=== PATIENT | male | born 1960 | race Caucasian/White ===

== ENCOUNTER 2018-09-01 06:39 | Day surgery (SDC) | payer OTHER ==
[2018-09-01] MEDS ORDERED: Ringers Lactate 1,000 ML IV ONE (07:14)
[2018-09-01] MEDS ORDERED: PROPOFOL 200 MG/20 ML VIAL IV ONE ×2 (08:52)
[2018-09-01] MEDS ORDERED: LIDOCAINE 1% MPF 5 ML VIAL ONE (08:53)
--- NOTE | 2018-09-01 19:24 | OP ---
Surgeon: Som Archer MD Procedure To Be Performed: Colonoscopy. Indication For Procedure: Screening. Complexity: Average. Plan For Anesthesia: Monitored anesthesia care. Technique: After obtaining informed consent from the patient and explaining risks and complications, the patient was placed in a left lateral position and sedation was given. From then on, a digital r ectal exam was performed and then scope advanced into the rectum and carefully guided up till the cec um. The cecum was identified by ileocecal valve and appendiceal region. After completion of examina tion, the scope and equipment were withdrawn and procedure terminated in a safe manner. Findings: On digital rectal exam, the prostate appeared to be smooth, but slightly enlarged. Peri us polyps were seen throughout the length of the colon. In the cecum, a sessile polyp around 4 mm in size was seen. This was removed with hot biopsy. In the ascending colon, a 4-mm flat polyp was see n, removed by hot biopsy. Also in the ascending colon, a 1.1 cm sessile polyp was seen. This was re moved by snare polypectomy. In the transverse colon, 2 polyps were seen around 3-4 mm in size. Thes e were removed by hot biopsy. In the splenic flexure, 2 polyps around 5-6 mm was seen. These were r emoved by hot biopsies. In the descending colon, a very flat, but large polyp which was around 1.5 x 1.5 cm was seen. This was first injected with tattoo for lift and complete snare polypectomy done. All polyp appeared to be resected and retrieved. In the sigmoid colon, few diverticula seen as well as 4 sessile polyps from 5-6 mm in size. These were removed by hot biopsy. In the rectum, 2 polyps around 8 mm in size were seen. These was resected by snare polypectomy. Retroflexion revealed grad e 1 internal hemorrhoids. Complications: None. Tolerance To Anesthesia: Excellent. Postoperative Diagnoses: Mild diverticulosis. Multiple polyps. Plan: 1.Await pathology results. 2.Follow up in the GI clinic in 2 weeks. 3.Due to significant number of polyps, would recommend staged colonoscopy in 1 year. US/MODL Voice ID: [id number] Report ID: [id number]
== END 2018-09-01 10:09 | disposition home or self-care (01) ==
LOC: ENDO 06:39
PROVIDERS: ATTEND Internal Medicine Gastroenterology
PROC: 0DBL8ZX Excision of Transverse Colon, Via Natural or Artificial Opening Endoscopic, Diagnostic (ICD-10-PCS; 2018-09-01)
PROC: 0DBN8ZX Excision of Sigmoid Colon, Via Natural or Artificial Opening Endoscopic, Diagnostic (ICD-10-PCS; 2018-09-01)
PROC: 0DBH8ZX Excision of Cecum, Via Natural or Artificial Opening Endoscopic, Diagnostic (ICD-10-PCS; 2018-09-01)
PROC: 0DBK8ZX Excision of Ascending Colon, Via Natural or Artificial Opening Endoscopic, Diagnostic (ICD-10-PCS; 2018-09-01)
PROC: 0DBP8ZX Excision of Rectum, Via Natural or Artificial Opening Endoscopic, Diagnostic (ICD-10-PCS; 2018-09-01)
PROC: 0DBM8ZX Excision of Descending Colon, Via Natural or Artificial Opening Endoscopic, Diagnostic (ICD-10-PCS; 2018-09-01)
PROC: 3E0H8GC Introduction of Other Therapeutic Substance into Lower GI, Via Natural or Artificial Opening Endoscopic (ICD-10-PCS; 2018-09-01)
PROC: 0DBK8ZX Excision of Ascending Colon, Via Natural or Artificial Opening Endoscopic, Diagnostic (ICD-10-PCS; principal; 2018-09-01 07:30)
DX: Z12.11 Encounter for screening for malignant neoplasm of colon (principal); D12.0 Benign neoplasm of cecum; D12.2 Benign neoplasm of ascending colon; D12.3 Benign neoplasm of transverse colon; D12.8 Benign neoplasm of rectum; K63.5 Polyp of colon; K62.1 Rectal polyp; K57.30 Diverticulosis of large intestine without perforation or abscess without bleeding; K64.0 First degree hemorrhoids; Z87.891 Personal history of nicotine dependence
CPT/HCPCS: 88305; J2704

== ENCOUNTER 2018-09-16 09:26 | Emergency (ER) | payer OTHER ==
[2018-09-16 10:26] LABS: Absolute Lymphocytes (CBC) 2.5 K/uL (0.7-4.9); Absolute Monocytes 0.7 K/uL (0.1-1.3); Basophils % 0.2 % (0-1.3); Eosinophils % 2.3 % (0-4.4); Hematocrit 41.6 % (39.6-49.0); Lymphocytes % 33.7 % (15.3-44.8); MCH 32.8 pg (27.0-35.0); MCV 94.5 fL (80-100); MPV 7.9 fL (7.6-11.3); Monocytes % 9.7 % (3.3-12.3)
[2018-09-16 10:49] LABS: ALT/SGPT 148 U/L (12-78); AST/SGOT 58 U/L (15-37); Albumin 4.1 g/dL (3.4-5.0); Alkaline Phosphatase 50 U/L (45-117); BUN Blood Urea Nitrogen 18 mg/dL (7-18); Bicarbonate 26 mmol/L (21-32); Bilirubin Direct 0.1 mg/dL (0-0.2); Bilirubin Total 0.5 mg/dL (0.2-1.0); Glucose Level 105 mg/dL (74-106); Lipase 199 U/L (73-393); Magnesium 2.3 mg/dL (1.8-2.4); NT PRO-BNP 7 pg/mL (<125); Potassium 4.4 mmol/L (3.5-5.1); Protein, Total 8.1 g/dL (6.4-8.2); Sodium Level 141 mmol/L (136-145); Troponin (Emerg Dept Use Only) < 0.02 ng/mL (0.0-0.045)
[2018-09-16] MEDS ORDERED: PANTOPRAZOLE 40 MG INJ ONE (11:12)
[2018-09-16] MEDS ORDERED: NA CHLORIDE 0.9% 1,000 ML ONE (11:12)
--- NOTE | 2018-09-16 11:24 | RAD REPORT ---
EXAM DESCRIPTION: RAD - Chest Single View - 09/16/2018 10:52 am CLINICAL HISTORY: ABDOMINAL DISTENTION Chest pain. COMPARISON: Abdomen 1 View (KUB) dated 11/24/2017; Abdomen 1 View (KUB) dated 11/15/2017; Abdomen 1 Vi ew (KUB) dated 11/08/2017; Abdomen 1 View (KUB) dated 11/03/2017 FINDINGS: Portable technique limits examination quality. The lungs are grossly clear. The heart is normal in size. No displaced fractures. IMPRESSION: No acute intrathoracic process suspected.
[2018-09-16 12:26] LABS: Urine Blood NEGATIVE (NEG); Urine Glucose NEGATIVE (NEG); Urine Protein NEGATIVE (NEG); Urine pH 6.5 (5.0-7.0)
--- NOTE | 2018-09-16 12:51 | RAD REPORT ---
EXAM DESCRIPTION: CT - Abdomen Pelvis W Contrast - 09/16/2018 12:30 pm CLINICAL HISTORY: Abdominal pain, predominantly right-sided. Lower back pain, dark bowel movements, history of colonoscopy 2 weeks earlier COMPARISON: None. TECHNIQUE: Biphasic, helical CT imaging of the abdomen and pelvis was performed following 100 ml non -ionic IV contrast. Oral contrast was given. All CT scans are performed using dose optimization technique as appropriate and may include automated exposure control or mA/KV adjustment according to patient size. FINDINGS: No suspicious findings in the lung bases. The liver, spleen, and pancreas show no focal findings. Liver shows a mild diffuse fatty infiltration . No gallbladder or biliary tree abnormality. There are few nonspecific peripancreatic and periportal lymph nodes. No edematous or inflammatory stranding of the upper abdomen. Symmetric renal function is seen with no hydronephrosis or suspicious renal mass. No pyelonephritis o r acute renal parenchymal process. Prostate gland, seminal vesicles and urinary bladder show no suspi cious finding. No gastric dilatation or wall thickening. No acute small bowel finding. The appendix is not well visu alized. No appendicitis findings. Terminal ileum and right side colon show no suspicious findings. Th ere a mild circumferential wall thickening mid sigmoid colon. This is favored to be a peristalsis art ifact. There is no inflammatory stranding or edema in this region and the patient had a colonoscopy 2 weeks earlier. Patient is apparently asymptomatic on the left side. No free air, free fluid or inflammatory stranding. No mass or bulky lymphadenopathy. Bilateral fat filled inguinal hernia is present. No adrenal abnormality. Disc and bone degenerative changes are present. Lucent area in the right ilium has a sclerotic rim an d is not suspected to be aggressive. IMPRESSION: No free air, obstruction or other surgically emergent finding. No abnormality to explain the patient detailed a right-sided abdominal pain. Mid sigmoid colon wall thickening favored to be peristalsis artifact. There is no inflammatory strand ing and recent colonoscopy should have excluded possibility of a mass. Mild diffuse fatty infiltration of the liver.
--- NOTE | 2018-09-16 13:19 | EDPHYS ---
Physician Documentation [facility] Name: Isaías Summers Age: 58 yrs Sex: Male : 1960 Arrival Date: 09/16/2018 Time: 09:30 Bed 8 Private MD: Xochilt Contreras F ED Physician Shawn Lake HPI: 09/16 10:10 This 58 yrs old Male presents to ER via Ambulatory with complaints of hans Abdominal Pain, Black/Tarry Stools. 10:10 The patient presents with abdominal pain in the right upper quadrant, right lower hans quadrant. Onset: The symptoms/episode began/occurred 2 day(s) ago. The patient presents to the emergency department with rectal bleeding, a small amount, melena, with multiple such episodes. Onset: The symptoms/episode began/occurred 1 day(s) ago. Abdominal pain: none is appreciated. Modifying factors: The symptoms are alleviated by nothing, the symptoms are aggravated by nothing. Associated signs and symptoms: The patient has no apparent associated signs or symptoms. The symptoms do not radiate. Historical: - Allergies: 09:48 No Known Allergies; aa5 - PMHx: 09:48 Kidney stones; sleep apnea-c pap machine; aa5 - PSHx: 09:48 TURP; Knee surgery; aa5 - Immunization history:: Flu vaccine is not up to date. - Social history:: Smoking status: Patient/guardian denies using tobacco. - Ebola Screening: : No symptoms or risks identified at this time. - Family history:: not pertinent. ROS: 10:10 Constitutional: Negative for fever, chills, and weight loss, Eyes: Negative for injury, hans pain, redness, and discharge, ENT: Negative for injury, pain, and discharge, Neck: Negative for injury, pain, and swelling, Cardiovascular: Negative for chest pain, palpitations, and edema, Respiratory: Negative for shortness of breath, cough, wheezing, and pleuritic chest pain, Back: Negative for injury and pain, : Negative for injury, bleeding, discharge, and swelling, MS/Extremity: Negative for injury and deformity, Skin: Negative for injury, rash, and discoloration, Neuro: Negative for headache, weakness, numbness, tingling, and seizure, Psych: Negative for depression, anxiety, suicide ideation, homicidal ideation, and hallucinations, Allergy/Immunology: Negative for hives, rash, and allergies, Endocrine: Negative for neck swelling, polydipsia, polyuria, polyphagia, and marked weight changes, Hematologic/Lymphatic: Negative for swollen nodes, abnormal bleeding, and unusual bruising. 10:10 Abdomen/GI: Positive for abdominal pain, of the right upper quadrant and right lower quadrant. Exam: 10:10 Constitutional: This is a well developed, well nourished patient who is awake, alert, hans and in no acute distress. Head/Face: Normocephalic, atraumatic. Eyes: Pupils equal round and reactive to light, extra-ocular motions intact. Lids and lashes normal. Conjunctiva and sclera are non-icteric and not injected. Cornea within normal limits. Periorbital areas with no swelling, redness, or edema. ENT: Nares patent. No nasal discharge, no septal abnormalities noted. Tympanic membranes are normal and external auditory canals are clear. Oropharynx with no redness, swelling, or masses, exudates, or evidence of obstruction, uvula midline. Mucous membranes moist. Neck: Trachea midline, no thyromegaly or masses palpated, and no cervical lymphadenopathy. Supple, full range of motion without nuchal rigidity, or vertebral point tenderness. No Meningismus. Chest/axilla: Normal chest wall appearance and motion. Nontender with no deformity. No lesions are appreciated. Cardiovascular: Regular rate and rhythm with a normal S1 and S2. No gallops, murmurs, or rubs. Normal PMI, no JVD. No pulse deficits. Respiratory: Lungs have equal breath sounds bilaterally, clear to auscultation and percussion. No rales, rhonchi or wheezes noted. No increased work of breathing, no retractions or nasal flaring. Abdomen/GI: Soft, non-tender, with normal bowel sounds. No distension or tympany. No guarding or rebound. No evidence of tenderness throughout. Back: No spinal tenderness. No costovertebral tenderness. Full range of motion. Male : Normal genitalia with no discharge or lesions. Skin: Warm, dry with normal turgor. Normal color with no rashes, no lesions, and no evidence of cellulitis. MS/ Extremity: Pulses equal, no cyanosis. Neurovascular intact. Full, normal range of motion. Neuro: Awake and alert, GCS 15, oriented to person, place, time, and situation. Cranial nerves II-XII grossly intact. Motor strength 5/5 in all extremities. Sensory grossly intact. Cerebellar exam normal. Normal gait. Psych: Awake, alert, with orientation to person, place and time. Behavior, mood, and affect are within normal limits. 10:10 Abdomen/GI: Inspection: distension, Bowel sounds: normal, Palpation: abdomen is soft and non-tender, Rectal exam: is unremarkable, Prostate: normal, rectal tone normal, Stool: normal, guaiac negative, mass, is not appreciated, swelling, is not appreciated, tenderness, is not appreciated, fecal impaction, is not appreciated. Vital Signs: 09:48 BP 127 / 85; Pulse 68; Resp 18 S; Temp 98.0(TE); Pulse Ox 98% on R/A; Weight 107.95 kg aa5 (R); Height 6 ft. 2 in. (187.96 cm) (R); Pain /; 11:35 BP 120 / 94; Pulse 52; Resp 18; Pulse Ox 98% on R/A; aj 13:07 BP 136 / 92; Pulse 53; Resp 20; Pulse Ox 98% on R/A; aj 13:51 BP 134 / 97; Pulse 58; Resp 19; Pulse Ox 99% on R/A; aj 09:48 Body Mass Index 30.56 (107.95 kg, 187.96 cm) aa5 MDM: 09:56 Patient medically screened. [facility] 10:12 Data reviewed: vital signs, nurses notes, lab test result(s), EKG, radiologic studies, [facility] CT scan, plain films. 09/16 10:10 Order name: Basic Metabolic Panel; Complete Time: 12:13 [facility] 09/16 10:10 Order name: CBC with Diff; Complete Time: 12:13 [facility] 09/16 10:10 Order name: LFT's; Complete Time: 12:13 [facility] 09/16 10:10 Order name: Magnesium; Complete Time: 12:13 [facility] 09/16 10:10 Order name: NT PRO-BNP; Complete Time: 12:13 [facility] 09/16 10:10 Order name: PT-INR; Complete Time: 12:13 [facility] 09/16 10:10 Order name: Troponin (emerg Dept Use Only); Complete Time: 12: [facility] 09/16 10:10 Order name: XRAY Chest (1 view); Complete Time: 12:13 [facility] 09/16 10:10 Order name: EKG; Complete Time: 10:11 [facility] 09/16 10:10 Order name: Lipase; Complete Time: 12:13 [facility] 09/16 10:10 Order name: CT Abd/Pelvis - W/Contrast; Complete Time: 13:12 [facility] 09/16 11:24 Order name: Urine Dipstick--Ancillary (enter results); Complete Time: 12:31 09/16 10:10 Order name: Cardiac monitoring; Complete Time: 10:47 [facility] 09/16 10:10 Order name: EKG - Nurse/Tech; Complete Time: 10:47 [facility] 09/16 10:10 Order name: IV Saline Lock; Complete Time: :47 [facility] 09/16 10:10 Order name: Labs collected and sent; Complete Time: :47 [facility] 09/16 10:10 Order name: O2 Per Protocol; Complete Time: 10:47 [facility] 09/16 10:10 Order name: O2 Sat Monitoring; Complete Time: :47 [facility] 09/16 10:10 Order name: Urine Dipstick-Ancillary (obtain specimen); Complete Time: 11:20 [facility] Administered Medications: 11:19 Drug: NS 0.9% 1000 ml Route: IV; Rate: 1 bolus; Site: right forearm; 13:52 Follow up: Response: No adverse reaction; IV Status: Completed infusion; IV Intake: aj 1000ml 11:19 Drug: ProTONIX 40 mg Route: IVP; Site: right forearm; aj 13:52 Follow up: Response: No adverse reaction Disposition: 09/16/18 13:18 Discharged to Home. Impression: Abdominal tenderness. - Condition is Stable. - Discharge Instructions: Abdominal Pain, Adult, Abdominal Pain, Adult, [id number]. - Prescriptions for Bentyl 20 mg Oral Tablet - take 1 tablet by ORAL route every 6 hours As needed; 20 tablet. Pepcid 20 mg Oral Tablet - take 1 tablet by ORAL route every 12 hours for 10 days; 20 tablet. Zofran 4 mg Oral Tablet - take 1 tablet by ORAL route every 12 hours As needed; 20 tablet. - Medication Reconciliation Form, Thank You Letter, Antibiotic Education, Prescription Opioid Use form. - Follow up: Xochilt Contreras MD; When: 2 - 3 days; Reason: Recheck today's complaints, Continuance of care, Re-evaluation by your physician. Follow up: Som Archer MD; When: 2 - 3 days; Reason: Recheck today's complaints, Continuance of care, Re-evaluation by your physician. Follow up: Alex Razo MD; When: 2 - 3 days; Reason: Recheck today's complaints, Re-evaluation by your physician. - Problem is new. - Symptoms have improved. Signatures: Dispatcher [employer] EDAnna Aguiar RN RN aj Anderson, Corey, MD MD cha Calderon, Audri RN RN aa5 Corrections: (The following items were deleted from the chart) 13:53 13:18 09/16/2018 13:18 Discharged to Home. Impression: Abdominal tenderness. Condition aj is Stable. Forms are Medication Reconciliation Form, Thank You Letter, Antibiotic Education, Prescription Opioid Use. Follow up: Xochilt Contreras; When: 2 - 3 days; Reason: Recheck today's complaints, Continuance of care, Re-evaluation by your physician. Follow up: Som Archer; When: 2 - 3 days; Reason: Recheck today's complaints, Continuance of care, Re-evaluation by your physician. Follow up: Alex Razo; When: 2 - 3 days; Reason: Recheck today's complaints, Re-evaluation by your physician. Problem is new. Symptoms have improved. hans
--- NOTE | 2018-09-16 13:19 | ER ---
Nurse's Notes [facility] Name: Isaías Summers Age: 58 yrs Sex: Male : 1960 Arrival Date: 09/16/2018 Time: 09:30 Bed 8 Private MD: Xochilt Contreras F Diagnosis: Abdominal tenderness Presentation: 09/16 09:46 Presenting complaint: Patient states: "I had my first colonoscopy about 2 weeks ago and aa5 now I am having all this problems". Pt c/o right-sided abd pain and lower back. Pt states "My bowel movement are pretty dark as well". Pt denies nausea or vomiting. Pt states "I get the pains after eating". Transition of care: patient was not received from another setting of care. Onset of symptoms was August 2018. Risk Assessment: Do you want to hurt yourself or someone else? Patient reports no desire to harm self or others. Initial Sepsis Screen: Does the patient meet any 2 criteria? No. Patient's initial sepsis screen is negative. Does the patient have a suspected source of infection? No. Patient's initial sepsis screen is negative. Care prior to arrival: None. 09:46 Method Of Arrival: Ambulatory aa5 09:46 Acuity: BYRON 3 aa5 Historical: - Allergies: 09:48 No Known Allergies; aa5 - PMHx: 09:48 Kidney stones; sleep apnea-c pap machine; aa5 - PSHx: 09:48 TURP; Knee surgery; aa5 - Immunization history:: Flu vaccine is not up to date. - Social history:: Smoking status: Patient/guardian denies using tobacco. - Ebola Screening: : No symptoms or risks identified at this time. - Family history:: not pertinent. Screenin:18 Abuse screen: Denies threats or abuse. Denies injuries from another. Nutritional aj screening: No deficits noted. Tuberculosis screening: No symptoms or risk factors identified. Fall Risk None identified. Assessment: 10:18 General: Appears in no apparent distress. comfortable, Behavior is calm, cooperative, aj appropriate for age. Pain: Denies pain. Neuro: Level of Consciousness is awake, alert, obeys commands, Oriented to person, place, time, situation, Appropriate for age. Respiratory: Airway is patent Respiratory effort is even, unlabored, Respiratory pattern is regular, symmetrical. GI: Abdomen is flat, Bowel sounds present X 4 quads. Abd is soft and non tender X 4 quads. GI: Reports black tarry stool. Derm: Skin is intact, is healthy with good turgor, Skin is pink, warm \\T\\ dry. normal. Vital Signs: 09:48 BP 127 / 85; Pulse 68; Resp 18 S; Temp 98.0(TE); Pulse Ox 98% on R/A; Weight 107.95 kg aa5 (R); Height 6 ft. 2 in. (187.96 cm) (R); Pain 1/10; 11:35 BP 120 / 94; Pulse 52; Resp 18; Pulse Ox 98% on R/A; aj 13:07 BP 136 / 92; Pulse 53; Resp 20; Pulse Ox 98% on R/A; aj 13:51 BP 134 / 97; Pulse 58; Resp 19; Pulse Ox 99% on R/A; aj 09:48 Body Mass Index 30.56 (107.95 kg, 187.96 cm) aa5 ED Course: 09:30 Patient arrived in ED. mr 09:30 Xochilt Contreras MD is Private Physician. mr 09:46 Arm band placed on. aa5 09:48 Triage completed. aa5 09:56 Shawn Lake MD is Attending Physician. hans 10:18 Anna Spears, HUMPHREY is Primary Nurse. aj 10:18 Patient has correct armband on for positive identification. aj 10:18 Inserted saline lock: 20 gauge in right forearm, using aseptic technique. Blood aj collected. 10:47 EKG done, by ED staff, reviewed by Shawn Lake MD. jb1 10:48 X-ray completed. Portable x-ray completed in exam room. Patient tolerated procedure ls3 well. 10:53 XRAY Chest (1 view) In Process Unspecified. EDMS 12:30 CT Abd/Pelvis - W/Contrast In Process Unspecified. EDMS 13:17 Xochilt Contreras MD is Referral Physician. hans 13:17 Som Archer MD is Referral Physician. hans 13:17 Alex Razo MD is Referral Physician. hans 13:51 No provider procedures requiring assistance completed. IV discontinued, intact, aj bleeding controlled, No redness/swelling at site. Pressure dressing applied. Administered Medications: 11:19 Drug: NS 0.9% 1000 ml Route: IV; Rate: 1 bolus; Site: right forearm; shawn 13:52 Follow up: Response: No adverse reaction; IV Status: Completed infusion; IV Intake: aj 1000ml 11:19 Drug: ProTONIX 40 mg Route: IVP; Site: right forearm; aj 13:52 Follow up: Response: No adverse reaction aj Intake: 13:52 IV: 1000ml; Total: 1000ml. shawn Outcome: 13:18 Discharge ordered by . hans 13:51 Discharged to home ambulatory. shawn 13:51 Condition: good 13:51 Discharge instructions given to patient, Instructed on discharge instructions, follow up and referral plans. medication usage, Demonstrated understanding of instructions, follow-up care, medications, Prescriptions given X 3. 13:53 Patient left the ED. aj Signatures: Dispatcher [employer] EDScott Billy jb1 Anna Spears, RN Shawn Dixon MD MD cha Rivera, Mary mr Calderon, Audri, RN RN Steffanie Akbar ls3
--- NOTE | 2018-09-17 07:04 | EKG ---
Test Date: 2018-09-16 Test Time: 10:09:41 Strategic Planning Analyst: KULWINDER MEASUREMENT RESULTS: Intervals: Rate: 54 GA: 150 QRSD: 136 QT: 452 QTc: 428 [place]: P: 45 GA: 150 QRS: -17 T: 14 INTERPRETIVE STATEMENTS: Sinus bradycardia Right bundle branch block Abnormal ECG Compared to ECG 11/12/2017 09:08:20 Right bundle-branch block now present Sinus rhythm no longer present Electronically Signed On 09-17-18 07:03:33 ROTOR BALANCER by Emory Joseph
== END 2018-09-16 13:53 | disposition home or self-care (01) ==
LOC: ER 09:26
DX: R10.819 Abdominal tenderness, unspecified site (principal)
CPT/HCPCS: 36415; 71045; 74177; 80048; 80076; 81003; 83690; 83735; 83880; 84484; 85025; 85610; 93005; 96361; 96374; 99284; C9113; J7030; Q9967

== ENCOUNTER 2018-11-24 06:25 | Day surgery (SDC) | payer OTHER ==
--- NOTE | 2018-11-23 02:29 | HP ---
Date of Admission: 11/24/2018 Chief Complaint: "I have a spot on my upper jaw." History Of Present Illness: The patient is a 58-year-old male, who has been having drainage of fluid from the right posterior maxillary vestibule over the past 3 months. He had a routine examination in January of 2018 by his general dentist. The dentist found an impacted third molar on plain radiographs that showed a large cyst in the right maxillary quadrant. His general dentist referred the patient for further evaluation and treatment. Past Medical History: Was reviewed, is significant for nephrolithiasis and colon polyps. Past Surgical History: Colonoscopy, removal of kidney stones. Social History: The patient drinks 4 beers daily. The patient reports that he stopped smoking cigarettes about 2-1/2 months ago. Medications: None. Allergies: NO KNOWN DRUG ALLERGIES. Physical Examination: Preoperative vital signs: Pulse 71, blood pressure 136/80, height 74 inches, weight 240 pounds, BMI 30.81. Body surface area 2.38. Imaging: Cone beam CT scans dated 02/17/2018 and 11/10/2018, both show unilocular expansile masses in the left and right posterior maxilla and maxillary sinuses. Both lesions were associated with impacted third molars. The third molars have been displaced into the medial and posterior valdes of the maxillary sinuses. There is radiopaque fluid within the right maxillary sinus. The right lesion measures about 2.5 x 3.6 cm and the left lesion measures 4.0 x 4.0 cm. There is a thin layer of bone surrounding most of the lesion on both sides with the exception of a large perforation of the lateral sinus wall into the buccal soft tissues on the right side. There is some expansion into the nasal passage on the left. The lesion is near the orbital floor and ethmoid sinuses on the left side. The roots of the molar teeth on the left side are almost completely resorbed. The roots of the molar teeth on the right side have significant resorption. The remainders of the jaw are without pathology. Teeth #5, #12, #17, #20, and #32 are missing. Oral Exam: An expansile mass can be palpated in the right posterior maxillary vestibule. It is firm and nontender. No exudate is expressed initially. The overlying mucosa appears to be normal. The teeth in the area are not mobile. There is no obvious expansion in the left maxillary vestibule. The overlying mucosa was normal in appearance. The posterior teeth are not mobile. Upon secondary palpation in the right posterior maxillary vestibule, some thick yellow exudate is expressed from a fistula just superior to the first molar. Diagnosis: Left and right maxillary cyst associated with impacted teeth #1 and #16. Differential Diagnoses: Includes: 1. Dentigerous cysts. 2. Odontogenic keratocyst or keratinizing odontogenic tumor. 3. Glandular odontogenic cyst. Plan: The patient will be admitted for outpatient hospital surgery. Operative plan is to extract impacted teeth #1 and #16, decompress the right and left maxillary cysts with enucleation and curettage of the right and left maxillary cysts. Specimens will be sent for histologic path diagnoses. MARYA/LISSETH Voice ID: [id number]
[~2018-11-24 06:25] MED LIST: CLINDAMYCIN INJ 900 MG in NA CHLORIDE 0.9% 50 ML IV SCH
[2018-11-24] MEDS ORDERED: CLINDAMYCIN 900MG/D5W 900 MG/50 ML IVPB IV ONE (07:00)
[2018-11-24] MEDS ORDERED: Ringers Lactate 1,000 ML IV ONE (07:00)
[2018-11-24] MEDS ORDERED: CHLORHEXIDINE 0.12% 473ML BOT MM ONE (07:25)
[2018-11-24] MEDS ORDERED: BUPIVACAINE 0.5% PF 10 ML VIAL ONE (07:25)
[2018-11-24] MEDS ORDERED: THROMBIN 5000 UNITS/VIAL TOP ONE (07:26)
[2018-11-24] MEDS ORDERED: PROPOFOL 200 MG/20 ML VIAL IV ONE (07:33)
[2018-11-24] MEDS ORDERED: MIDAZOLAM HCL 2 MG/2 ML INJ ONE (07:33)
[2018-11-24] MEDS ORDERED: LIDOCAINE 1% MPF 5 ML VIAL ONE (07:33)
[2018-11-24] MEDS ORDERED: ROCURONIUM 50 MG/5 ML VIAL IV ONE (07:33)
[2018-11-24] MEDS ORDERED: ONDANSETRON 4 MG/2 ML VIAL ONE ×2 (07:34→10:00)
[2018-11-24] MEDS ORDERED: DEXAMETHASONE 10 MG/ML VIAL ONE (07:34)
[2018-11-24] MEDS ORDERED: FENTANYL CITR 250 MCG/5 ML ONE ×2 (07:34→08:50)
[2018-11-24] MEDS ORDERED: OXYMETAZOLINE HCL 0.05% 15ML NAS ONE (07:37)
[2018-11-24] MEDS ORDERED: LIDOCAINE 1% W/EPI 1:100,000 MDV 50 ML VIAL ONE (07:38)
[2018-11-24] MEDS ORDERED: CEFAZOLIN 1GM (PREMIX IV) 1 GM/50 ML BAG ONE (08:40)
[2018-11-24] MEDS ORDERED: KETOROLAC 30 MG/ML INJ ONE (09:59)
[2018-11-24] MEDS ORDERED: GLYCOPYRROLATE 0.2 MG/ML SYR ONE ×2 (09:59→10:11)
[2018-11-24] MEDS ORDERED: NEOSTIGMINE 1 MG/ML -10 ML VIAL ONE (10:00)
[2018-11-24] MEDS ORDERED: SUCCINYLCHOLINE 20 MG/ML (10 ML) IV ONE (10:35)
--- NOTE | 2018-12-06 00:29 | OP ---
Date of Procedure: 11/24/2018 Surgeon: Jose L Mathew DDS, MD Tire Assembler: Staff. Preoperative Diagnosis: Right and left maxillary odontogenic cysts associated with impacted teeth #1 and #16. Postoperative Diagnosis: Right and left maxillary odontogenic cysts associated with impacted teeth # 1 and #16. Procedure: Enucleation and curettage of the right and left maxillary cysts and extraction of teeth # 1 and #16. Anesthesia: General endotracheal. Estimated Blood Loss: 75 cc. Fluids: 1.2 L of LR. Drains: 3/4-inch Fairbank drain on the right and left maxillary vestibules. Specimen: The left and right maxillary cysts were submitted for histopathology. Complications: None. Indications: The patient is a 58-year-old male, who initially presented about one year ago complaini ng of fluid and a foul taste and drainage from the right maxillary vestibule. He was examined by his general dentist and radiographs were taken. He was found to have large maxillary cysts and impacted wisdom tooth. He was referred for further evaluation and treatment. A cone beam CT scan of the fac ial skeleton was performed. The patient was found to have a displacement of impacted teeth #1 and #1 6 into the medial and posterior valdes of the maxillary sinus. He had large unilocular radiolucencies on the left and right side of the maxilla occupying most of the space in the maxillary antrum. Ther e was resorption of the roots of the molar teeth. Findings: The left maxillary cyst was thick walled and contained thick brown fluid that appeared to be keratin. The right maxillary cyst was also thick-walled and contained straw-colored fluid without much keratin. Procedure In Detail: The patient was taken to the operating room and placed on the table in the supi ne position. General anesthesia was begun and the patient was orotracheally intubated. The patient was then prepped and draped in the normal sterile fashion. A throat pack was placed. Local anesthes ia was given in the maxillary vestibules using 12 cc of 1% lidocaine with 1:100,000 epinephrine. The oral cavity was irrigated with chlorhexidine solution. A #15 blade was used to make an incision in the maxillary vestibule on the left side just above the molar teeth. The incision was carried from t he tuberosity forward to the premolar area. Full-thickness mucoperiosteal flaps were reflected super iorly and inferiorly to expose the area. The bone overlying the lateral wall of the maxillary antrum was very thin and in some areas there was no bone. A round bur and a Pennie drill were used to audrey e a window in the bone just above the first molar. A Levi-Srinivasan access was developed using the chaparro geurs. Curettes were used to begin to separate the cyst lining from the adjacent bone and soft tissu es. Sinus lift curettes were used to complete this process. The cyst was kept almost entirely intac t until the area around the impacted tooth #16 was reached. A small incision was made in the cyst li rod so that the tooth could be identified within the lumen of the cyst. Straight and curved elevato rs were used to luxate the tooth. It was then grasped with a rongeur and removed from the maxillary antrum. Curettes were used to then complete the enucleation of the cyst from the antral cavity. The cyst was removed in 1 large piece and submitted for histopathology. The curettes were used to remov e additional soft tissue from around the roots of the teeth and the superior part of the cyst cavity. There was no truly defined antrum and it was difficult to identify the sinus membrane. The defect was irrigated with sterile saline solution. A 3/4-inch Sally drain was then cut to fit into the sp ole. A 4-0 chromic gut suture was used in a running fashion to close the incision to the molar area. Fairbank drain was inserted in the cavity and secured with 1-0 silk sutures. The incision posterior to the drain was closed using 4-0 chromic gut sutures. Attention was then turned to the right side of the maxilla. A #15 blade was used to make an incision in the right maxillary vestibule from the t uberosity to the premolar area. Full-thickness mucoperiosteal flaps were reflected superiorly and in feriorly to expose the area. The bone overlying the cyst in the lateral wall of the maxillary sinus was very thin. It was removed using a small rongeur. Levi-Srinivasan access was created in [facility]. Sinus lift curettes were used to separate the cyst from the adjacent bone and soft tissues. Ther e were areas where the cyst lining was in direct contact with the musculature posterior to the maxill therese sinus and with the maxillary sinus membrane itself anteriorly and superiorly. Blunt dissection w as used to remove the cyst lining in this area. The cyst was enucleated in 1 piece. Once area where impacted teeth #1was reached, a small incision was made in the cyst so that the tooth could be acces sed through the lumen of the cyst. Upper universal dental forceps were used to grasp the tooth and r emove it. Curettes were then used to complete the enucleation of the cyst. There was very little re sidual cyst lining and curettes were used to remove a small amount more of soft tissue. Some sharp e dges of alveolar bone were removed with a rongeur and a 3/4-inch Sally drain was cut to fit into th e defect. The defect was irrigated with sterile saline solution. 4-0 chromic gut sutures were used to close the incision initially and then the Sally drain was inserted into the defect. The Fairbank drain was sutured with two 1-0 silk sutures. The remaining incision was closed using 4-0 chromic gu t sutures. The cyst was submitted for histopathologic diagnosis. The oral cavity was irrigated agai n with sterile saline solution, suctioned and found to be free of all blood and debris. The throat p ack was removed. The oropharynx was suctioned. 4 x 4 gauzes were placed bilaterally to aid with hem ostasis. The patient was awakened from general anesthesia and extubated in the operating room. The patient was transported to the recovery room in stable and satisfactory condition. MARYA/LISSETH Voice ID: [id number] Report ID: [id number]
== END 2018-11-24 12:50 | disposition home or self-care (01) ==
LOC: OR 06:25
PROVIDERS: ATTEND Oral & Maxillofacial Surgery
PROC: 0CBW0Z1 Excision of Upper Tooth, Open Approach, Multiple (ICD-10-PCS; 2018-11-24)
PROC: 0CDWXZ1 Extraction of Upper Tooth, Multiple, External Approach (ICD-10-PCS; principal; 2018-11-24 07:30)
DX: K09.0 Developmental odontogenic cysts (principal); K01.1 Impacted teeth; Z87.891 Personal history of nicotine dependence
CPT/HCPCS: J0330; J0690; J1100; J2250; J2405; J2704; J2710; J3010

== ENCOUNTER 2020-11-29 07:10 | Emergency (ER) | payer OTHER ==
--- OUTSIDE RECORDS SUMMARY | 2020-11-29 07:12 | XMS REPORT | Continuity of Care Document ---
:1960 Author Organization [facility] t Address [address] [place] [address] Care Team Providers Name Role Phone Pob1, Care Clinic Attending Clinician Unavailable Lab, Fam Pob I Attending Clinician Unavailable Doctor Unassigned, Name Attending Clinician Unavailable Problems This patient has no known problems. Allergies, Adverse Reactions, Alerts This patient has no known allergies or adverse reactions. Medications This patient has no known medications. Procedures This patient has no known procedures. Encounters Start End Encounter Admission Attending Care Care Encounter Source Date/Time Date/Time Type Type Clinicians Facility Department ID 2020-05-10 2020-05-10 Telephone Pob1, Acute [facility] [id number] 00:00:00 00:00:00 [facility] [id number] [place] [id number] Professio [phone] nal [address] 2020-05-09 2020-05-09 Laboratory Lab, Adc [facility] [id number] 09:38:46 09:58:46 Only Fam Pob I Health [id number] [place] [id number] Professio [phone] nal [address] 2020-05-09 2020-05-09 Letter Doctor VIGIL [id number] 00:00:00 00:00:00 (Out) Unassigned, [place] [id number] [facility] [id number] [phone] [id number] Results This patient has no known results.
[2020-11-29 08:13] LABS: Absolute Lymphocytes (CBC) 2.3 K/uL (0.7-4.9); Basophils % 1.3 % (0-1.3); Hematocrit 42.9 % (39.6-49.0); Lymphocytes % 39.6 % (15.3-44.8); MPV 7.7 fL (7.6-11.3); RBC Red Blood Cell Count 4.59 M/uL (4.33-5.43)
[2020-11-29 08:29] LABS: Albumin 4.3 g/dL (3.4-5.0); Bilirubin Direct 0.2 mg/dL (0-0.2); Bilirubin Total 0.8 mg/dL (0.2-1.0); Potassium 3.8 mmol/L (3.5-5.1)
[2020-11-29 08:43] LABS: Urine Blood NEGATIVE (NEG); Urine Glucose NEGATIVE (NEG); Urine Protein NEGATIVE (NEG); Urine pH 5.5 (5.0-7.0)
[2020-11-29 08:46] LABS: Urine Bacteria NONE SEEN /HPF (NONE SEEN); Urine Mucus HEAVY /HPF (NONE SEEN); Urine RBC <5 /HPF (NONE SEEN)
--- NOTE | 2020-11-29 09:52 | RAD REPORT ---
EXAM DESCRIPTION: CT - Abdomen Pelvis W Contrast - 11/29/2020 9:24 am CLINICAL HISTORY: left flank pain COMPARISON: <Comparisons> TECHNIQUE: Biphasic, helical CT imaging of the abdomen and pelvis was performed following 100 ml non -ionic IV contrast. No oral contrast administered. All CT scans are performed using dose optimization technique as appropriate and may include automated exposure control or mA/KV adjustment according to patient size. FINDINGS: No suspicious findings in the lung bases. The liver, spleen, and pancreas show no suspicious findings. Liver shows a mild diffuse fatty infiltr ation pattern. No focal liver lesion. No portal vein abnormality identified. Gallbladder and biliary tree without suspicious findings. Symmetric renal function is seen with no hydronephrosis or suspicious renal mass. No pyelonephritis o r acute parenchymal process. Nonobstructing 5 mm and 1 mm calcifications seen lower pole of the left kidney larger calcification has enlarged from 2018. The punctate 1 mm calcification is new from 2018. No adrenal abnormalities. No dilated bowel loops or bowel wall thickening. Mild left-sided sigmoid diverticulosis present witho ut diverticulitis. No free air, free fluid or inflammatory stranding. No mass or bulky lymphadenopat hy. Small bilateral fat filled inguinal hernias are present similar to 2018. No suspicious bony findings. Disc and bony degenerative changes are present. Prominent SI joint degen erative changes are present. These findings are similar to the comparison study. Vascular calcifications are present. No new aortic finding seen. IMPRESSION: Contrast enhanced CT abdomen and pelvis showing no acute or emergent finding. Patient has nonobstructing calculi in the lower pole of the left kidney. No acute finding is identifiable. Nonacute findings detailed in the body of the report. No worrisome change from 2018.
[2020-11-29] MEDS ORDERED: MEPERIDINE HCL 50 MG/ML ONE (10:01)
--- NOTE | 2020-11-29 10:13 | ER ---
Nurse's Notes [facility] Name: Isaías Summers Age: 60 yrs Sex: Male : 1960 Arrival Date: 11/29/2020 Time: 07:12 Bed 28 Private MD: Ramo Denis C Diagnosis: Low back pain Presentation: 11/29 07:32 Chief complaint: Patient states: Wednesday, left sided flank pain, had appt with urologist iw and was told he needed a CT scan but can;t have it done , having increasing pain. Coronavirus screen: At this time, the client does not indicate any symptoms associated with coronavirus-19. Ebola Screen: Patient negative for fever greater than or equal to 101.5 degrees Fahrenheit, and additional compatible Ebola Virus Disease symptoms Patient denies exposure to infectious person. Patient denies travel to an Ebola-affected area in the 21 days before illness onset. No symptoms or risks identified at this time. Initial Sepsis Screen: Does the patient meet any 2 criteria? No. Patient's initial sepsis screen is negative. Does the patient have a suspected source of infection? No. Patient's initial sepsis screen is negative. Risk Assessment: Do you want to hurt yourself or someone else? Patient reports no desire to harm self or others. Onset of symptoms was November 25, 2020. 07:32 Method Of Arrival: Ambulatory iw 07:32 Acuity: BYRON 3 iw Historical: - Allergies: 07:34 No Known Allergies; iw - Home Meds: 07:34 amlodipine oral [Active]; iw - PMHx: 07:34 Kidney stones; sleep apnea-c pap machine; Hypertension; iw - PSHx: 07:34 TURP; Knee surgery; iw - Immunization history:: Adult Immunizations not up to date. - Social history:: Smoking status: Patient reports the use of cigarette tobacco products, smokes one pack cigarettes per day. - Family history:: not pertinent. - Hospitalizations: : No recent hospitalization is reported. Screenin:00 Fall Risk None identified. iw 08:11 Abuse screen: Denies threats or abuse. Denies injuries from another. Nutritional iw screening: No deficits noted. Tuberculosis screening: No symptoms or risk factors identified. Assessment: 07:52 General: Appears in no apparent distress. Behavior is calm, cooperative. Pain: iw Complains of pain in left upper quadrant and left lower quadrant. 09:28 Reassessment: Patient appears in no apparent distress at this time. Patient and/or iw family updated on plan of care and expected duration. Pain level reassessed. Patient is alert, oriented x 3, equal unlabored respirations, skin warm/dry/pink. Vital Signs: 07:32 BP 137 / 90; Pulse 72; Resp 16; Temp 97.0; Pulse Ox 99% on R/A; Weight 108.86 kg; iw Height 6 ft. 2 in. (187.96 cm); Pain 8/10; 08:39 BP 129 / 77; Pulse 58; Resp 18; Temp 97.6(O); Pulse Ox 100% on R/A; mh5 07:32 Body Mass Index 30.81 (108.86 kg, 187.96 cm) iw ED Course: 07:12 Patient arrived in ED. as 07:12 Ramo Denis MD is Private Physician. as 07:34 Triage completed. iw 07:34 Arm band placed on. iw 07:38 Colt España MD is Attending Physician. rn 07:51 Yazmin Hahn RN is Primary Nurse. iw 08:37 Initial lab(s) drawn, by la, sent to lab. Urine collected: clean catch specimen, clear. mh5 Inserted saline lock: 20 gauge in left antecubital area, using aseptic technique. Blood collected. 08:38 Patient has correct armband on for positive identification. Bed in low position. Call mh5 light in reach. Side rails up X 1. Pulse ox on. NIBP on. 09:24 CT Abd/Pelvis - IV Contrast Only In Process Unspecified. EDMS 10:45 No provider procedures requiring assistance completed. IV discontinued, intact, iw bleeding controlled, No redness/swelling at site. Pressure dressing applied. Administered Medications: 09:53 Drug: Demerol 50 mg Route: IVP; Site: right antecubital; iw 10:35 Drug: Decadron - Dexamethasone 10 mg Route: IVP; Site: right antecubital; iw Outcome: 10:12 Discharge ordered by MD. rn 10:45 Discharged to home ambulatory, with family. iw 10:45 Condition: good 10:45 Discharge instructions given to patient, Instructed on discharge instructions, follow up and referral plans. medication usage, Demonstrated understanding of instructions, follow-up care, medications, Prescriptions given X 2. 10:45 Patient left the ED. iw Signatures: Dispatcher [employer] Johanne Duffy Irene, RN RN iw Nieto, Roman, MD MD rn Martinez, Maria mh5
--- NOTE | 2020-11-29 10:13 | EDPHYS ---
Physician Documentation [facility] Name: Isaías Summers Age: 60 yrs Sex: Male : 1960 Arrival Date: 11/29/2020 Time: 07:12 Bed 28 Private MD: Ramo Denis C ED Physician Colt España HPI: 11/29 08:07 This 60 yrs old Male presents to ER via Ambulatory with complaints of Flank rn Pain. 08:07 The patient complains of pain in the left mid back. The pain radiates to the abdomen. rn Onset: The symptoms/episode began/occurred 5 day(s) ago. Modifying factors: The symptoms are alleviated by nothing. the symptoms are aggravated by nothing. Severity of pain: At its worst the pain was moderate in the emergency department the pain is unchanged. The patient has experienced similar episodes in the past. The patient has been recently seen by a physician:. Reports left flank pain, radiates to left side/abdomen, no fever/vomiting/diarrhea/blood in stool, + hx of kidney stones, went to urologist and had "clean urine", told needs ct scan, scheduled, but in future. Reports pain not improving so came here for evaluation.. Historical: - Allergies: 07:34 No Known Allergies; iw - Home Meds: 07:34 amlodipine oral [Active]; iw - PMHx: 07:34 Kidney stones; sleep apnea-c pap machine; Hypertension; iw - PSHx: 07:34 TURP; Knee surgery; iw - Immunization history:: Adult Immunizations not up to date. - Social history:: Smoking status: Patient reports the use of cigarette tobacco products, smokes one pack cigarettes per day. - Family history:: not pertinent. - Hospitalizations: : No recent hospitalization is reported. ROS: 08:07 Constitutional: Negative for fever, chills, and weight loss, Eyes: Negative for injury, rn pain, redness, and discharge, Neck: Negative for injury, pain, and swelling, Cardiovascular: Negative for chest pain, palpitations, and edema, Respiratory: Negative for shortness of breath, cough, wheezing, and pleuritic chest pain, Abdomen/GI: Negative for abdominal pain, nausea, vomiting, diarrhea, and constipation, Back: + left flank pain : + increased urinary frequency, no hematuria MS/Extremity: Negative for injury and deformity, Skin: Negative for injury, rash, and discoloration, Neuro: Negative for headache, weakness, and seizure. Exam: 08:07 Constitutional: This is a well developed, well nourished patient who is awake, alert, rn and in no acute distress. Head/Face: Normocephalic, atraumatic. Cardiovascular: Regular rate and rhythm. No pulse deficits. Respiratory: No increased work of breathing, no retractions or nasal flaring. Abdomen/GI: soft, non-tender Back: No spinal tenderness. No CVAT Skin: Warm, dry MS/ Extremity: Pulses equal, no cyanosis. Neuro: Awake and alert, GCS 15, oriented to person, place, time, and situation. Motor strength 5/5 in all extremities. Sensory grossly intact. Cerebellar exam normal. Normal gait. Vital Signs: 07:32 BP 137 / 90; Pulse 72; Resp 16; Temp 97.0; Pulse Ox 99% on R/A; Weight 108.86 kg; iw Height 6 ft. 2 in. (187.96 cm); Pain 8/10; 08:39 BP 129 / 77; Pulse 58; Resp 18; Temp 97.6(O); Pulse Ox 100% on R/A; mh5 07:32 Body Mass Index 30.81 (108.86 kg, 187.96 cm) iw MDM: 07:38 Patient medically screened. rn 10:10 Differential diagnosis: nephrolithiasis, pyelonephritis, UTI, radiculopathy, hernia, rn shingles. 10:10 Data reviewed: vital signs, nurses notes, lab test result(s), radiologic studies, CT rn scan, and as a result, I will discharge patient. Counseling: I had a detailed discussion with the patient and/or guardian regarding: the historical points, exam findings, and any diagnostic results supporting the discharge/admit diagnosis, lab results, radiology results, the need for outpatient follow up, to return to the emergency department if symptoms worsen or persist or if there are any questions or concerns that arise at home. Response to treatment: the patient's symptoms have mildly improved after treatment, and as a result, I will discharge patient. Special discussion: I discussed with the patient/guardian in detail that at this point there is no indication for admission to the hospital. It is understood, however, that if the symptoms persist or worsen the patient needs to return immediately for re-evaluation. ED course: No acute findings on ct abdomen, clean urine, no skin changes. Most likely either radiculopathy/neuropathy given lumbar disease and recently started to workout and lift, or could be early shingles. Will dc home with steroids and return precautions. . 11/29 07:47 Order name: Basic Metabolic Panel; Complete Time: 08:59 rn 11/29 07:47 Order name: CBC with Diff; Complete Time: 08:59 rn 11/29 07:47 Order name: Hepatic Function; Complete Time: 08:59 rn 11/29 07:47 Order name: Lipase; Complete Time: 08:59 rn 11/29 07:47 Order name: Urine Microscopic Only; Complete Time: 08:59 rn 11/29 08:32 Order name: Urine Dipstick--Ancillary (enter results); Complete Time: 08:59 eb 11/29 07:47 Order name: IV Saline Lock; Complete Time: 08:53 rn 11/29 07:47 Order name: Labs collected and sent; Complete Time: 08:53 rn 11/29 07:47 Order name: CT Abd/Pelvis - IV Contrast Only; Complete Time: 09:57 rn 11/29 07:47 Order name: Urine Dipstick-Ancillary (obtain specimen); Complete Time: 08:52 rn Administered Medications: 09:53 Drug: Demerol 50 mg Route: IVP; Site: right antecubital; iw 10:35 Drug: Decadron - Dexamethasone 10 mg Route: IVP; Site: right antecubital; iw Disposition: 11/29/20 10:12 Discharged to Home. Impression: Low back pain. - Condition is Stable. - Discharge Instructions: Back Pain, Adult. - Prescriptions for Cyclobenzaprine 10 mg Oral Tablet - take 1 tablet by ORAL route every 8 hours As needed; 20 tablet. Medrol (Damien) 4 mg Oral Tablets, Dose Pack - take 1 tablet by ORAL route as directed - follow package instructions; 1 packet. - Medication Reconciliation Form, Thank You Letter, Antibiotic Education, Prescription Opioid Use form. - Follow up: Private Physician; When: As needed; Reason: Recheck today's complaints, Re-evaluation by your physician. - Problem is new. - Symptoms have improved. Signatures: Dispatcher [employer] EDYazmin Oliveira, Colt Bowden RN, MD MD property management intern: (The following items were deleted from the chart) 10:45 10:12 11/29/2020 10:12 Discharged to Home. Impression: Low back pain. Condition is iw Stable. Forms are Medication Reconciliation Form, Thank You Letter, Antibiotic Education, Prescription Opioid Use. Follow up: Private Physician; When: As needed; Reason: Recheck today's complaints, Re-evaluation by your physician. Problem is new. Symptoms have improved. rn
[2020-11-29] MEDS ORDERED: dexAMETHasone 10 MG/ML VIAL ONE (10:50)
[2020-11-29 10:53] VITALS: BP 129/77; TEMP 97.6; O2SAT 100
== END 2020-11-29 10:45 | disposition home or self-care (01) ==
LOC: ER 07:10
DX: M54.5 Low back pain (principal); I10 Essential (primary) hypertension; F17.210 Nicotine dependence, cigarettes, uncomplicated; Z87.442 Personal history of urinary calculi
CPT/HCPCS: 85025; 80048; 36415; 80076; 83690; 74177; 96375; 96374; 99284; Q9967; J1100; J2175; 81003; 81015

== ENCOUNTER 2021-10-17 06:13 | Emergency (ER) | payer OTHER ==
--- OUTSIDE RECORDS SUMMARY | 2021-10-17 06:17 | XMS REPORT | Continuity of Care Document ---
:1960 Author Organization [facility] t Address [address] [place] [address] Care Team Providers Name Role Phone Pob1, Care Clinic Attending Clinician Unavailable Lab, Fam Pob I Attending Clinician Unavailable Anene SOCIAL WORKER CLINICAL Attending Clinician ANENE Attending Clinician Unavailable Doctor Unassigned, Name Attending Clinician Unavailable Payers Payer Name Policy Type Policy Number Effective Date Expiration Date S ource Problems This patient has no known problems. Allergies, Adverse Reactions, Alerts Allergy Allergy Status Severity Reaction(s) Onset Inactive Treating Comm ents Source Name Type Date Date Clinician NO KNOWN Drug Active [facility] ALLERGIE Class it[facility] of [facility] Social History Social Habit Start Date Stop Date Quantity Comments [facility] Status Start Date Stop Date Source Unknown if ever smoked [facility] Medications This patient has no known medications. Procedures This patient has no known procedures. Encounters Start End Encounter Admission Attending Care Care Encounter Source Date/Time Date/Time Type Type Clinicians Facility Department ID 2020-05-10 2020-05-10 Telephone Pob1, Acute [facility] [id number] 00:00:00 00:00:00 [facility] [id number] [place] [id number] [place] [phone] nal [address] 2020-05-10 2020-05-10 Telephone Pob1, Acute [facility] 1.2.840.114 [id number] [facility] 00:00:00 00:00:00 [facility] [id number] itradha [facility] [id number] Tim as Professio [phone] Ok dical nal [address] [place] [address] [facility] 2020-05-09 2020-05-09 Laboratory Lab, [facility] [id number] 09:38:46 09:58:46 Only Fam Pob I Health [id number] [place] [id number] Professio [phone] nal [address] [facility] 2020-05-09 2020-05-09 Laboratory Lab, [facility] Fam Pob I [facility] [id number] [facility] 09:38:46 09:58:46 Only [facility] [id number] ity of [place] [id number] Tim as Professio [phone] Ok dical nal [address] [place] [address] [facility] 2020-05-09 2020-05-09 Outpatient R PEDRITO, [facility] [id number] 808 Univers 09:40:00 09:40:00 ALCIRAABBIE vasquez of [facility] 2020-05-09 2020-05-09 Letter Doctor YARITZA [id number] 00:00:00 00:00:00 (Out) Unassigned, [place] [id number] [place] [facility] [phone] [facility] 2020-05-09 2020-05-09 Letter Doctor YARITZA [id number] [facility] 00:00:00 00:00:00 (Out) Unassigned, [place] [id number] ity of [place] [facility] [id number] Tim as [phone] [address] Results This patient has no known results.
[2021-10-17 07:27] LABS: Absolute Lymphocytes (CBC) 2.4 K/uL (0.7-4.9); Basophils % 1.3 % (0-1.3); Lymphocytes % 34.9 % (15.3-44.8); MPV 7.3 fL (7.6-11.3); RBC Red Blood Cell Count 4.29 M/uL (4.33-5.43)
[2021-10-17 07:32] LABS: Urine Blood Negative (Negative); Urine Glucose Negative (Negative); Urine Protein Negative (Negative); Urine Specific Gravity >=1.030 (1.005-1.030); Urine pH 5.5 (5.0-7.0)
[2021-10-17 07:44] LABS: Albumin 4.1 g/dL (3.4-5.0); Bilirubin Direct 0.1 mg/dL (0-0.2); Bilirubin Total 0.6 mg/dL (0.2-1.0); Protein, Total 7.7 g/dL (6.4-8.2)
--- NOTE | 2021-10-17 08:43 | RAD REPORT ---
EXAM DESCRIPTION: CTAbdomen Pelvis W Contrast - 10/17/2021 8:28 am CLINICAL HISTORY: ABD PAIN COMPARISON: Abdomen Pelvis W Contrast dated 11/29/2020; Abdomen Pelvis W Contrast dated 09/16/2018 TECHNIQUE: CT of the abdomen and pelvis was performed. All CT scans are performed using dose optimization technique as appropriate and may include automated exposure control or mA/KV adjustment according to patient size. FINDINGS: Lower chest: No acute abnormality. Liver: No acute abnormality or suspicious lesions. Biliary: No biliary ductal dilatation. Stomach: No significant focal abnormality. Duodenum: No significant focal abnormality. Pancreas: No significant abnormality. Spleen: No significant abnormality. Adrenal: No suspicious lesions. Kidney/ureter: No hydronephrosis. Nonobstructive bilateral nephrolithiasis . Retroperitoneum: No retroperitoneal adenopathy. Vascular: No aneurysm. Atherosclerosis. Bowel: No significant focal abnormality. Peritoneum: No ascites or free air. Fat containing inguinal hernias. Bladder: Grossly unremarkable. Reproductive: No adnexal masses. Bones: No acute fracture. Other: n/a IMPRESSION: No acute intra-abdominal or pelvic finding. Nonobstructive nephrolithiasis.
--- NOTE | 2021-10-17 09:11 | EDPHYS ---
Physician Documentation [facility] Name: Isaías Summers Age: 61 yrs Sex: Male : 1960 Arrival Date: 10/17/2021 Time: 06:18 Bed 8 Private MD: ED Physician Colt España HPI: 10/17 09:13 This 61 yrs old Male presents to ER via Ambulatory with complaints of Pain, jr8 Constipation. 09:13 Patient stated that for the past couple of weeks has had on/off pain to right flank jr8 region. Over the past several days has noted to have constipation as well. Stated that he will take Aleve which helps but after it wears off will have continued pain. Denies fever, vomiting, diarrhea, or abdominal pain . Historical: - Allergies: 07:05 No Known Allergies; as6 - Home Meds: 07:05 amlodipine oral [Active]; as6 - PMHx: 07:05 Hypertension; Kidney stones; sleep apnea-c pap machine; as6 - PSHx: 07:05 Lithotripsy; as6 - Immunization history:: Adult Immunizations not up to date, Client reports receiving the 2nd dose of the Covid vaccine, Last tetanus immunization: unknown, Pneumococcal vaccine is not up to date, Flu vaccine is not up to date. - Social history:: Smoking status: Patient reports the use of cigarette tobacco products, smokes one pack cigarettes per day. ROS: 09:13 Eyes: Negative for injury, pain, redness, and discharge, ENT: Negative for injury, jr8 pain, and discharge, Neck: Negative for injury, pain, and swelling, Cardiovascular: Negative for chest pain, palpitations, and edema, Respiratory: Negative for shortness of breath, cough, wheezing, and pleuritic chest pain, Abdomen/GI: Negative for abdominal pain, nausea, vomiting, diarrhea, and constipation, MS/Extremity: Negative for injury and deformity, Skin: Negative for injury, rash, and discoloration, Neuro: Negative for headache, weakness, numbness, tingling, and seizure. 09:13 Back: Positive for pain at rest, Negative for decreased range of motion, pain with movement. Exam: 09:13 Constitutional: This is a well developed, well nourished patient who is awake, alert, jr8 and in no acute distress. Cardiovascular: Regular rate and rhythm with a normal S1 and S2. No gallops, murmurs, or rubs. Normal PMI, no JVD. No pulse deficits. Respiratory: Lungs have equal breath sounds bilaterally, clear to auscultation and percussion. No rales, rhonchi or wheezes noted. No increased work of breathing, no retractions or nasal flaring. Abdomen/GI: Soft, non-tender, with normal bowel sounds. No distension or tympany. No guarding or rebound. No evidence of tenderness throughout. Back: No spinal tenderness. No costovertebral tenderness. Full range of motion. Skin: Warm, dry with normal turgor. Normal color with no rashes, no lesions, and no evidence of cellulitis. MS/ Extremity: Pulses equal, no cyanosis. Neurovascular intact. Full, normal range of motion. Neuro: Awake and alert, GCS 15, oriented to person, place, time, and situation. Cranial nerves II-XII grossly intact. Motor strength 5/5 in all extremities. Sensory grossly intact. Cerebellar exam normal. Normal gait. Vital Signs: 06:55 BP 135 / 87; Pulse 62; Resp 18 S; Temp 97.5(O); Pulse Ox 96% on R/A; Weight 108.86 kg as6 (R); Height 6 ft. 2 in. (187.96 cm) (R); Pain 5/10; 09:19 BP 124 / 83; Pulse 60; Resp 17; Pulse Ox 100% ; ll1 06:55 Body Mass Index 30.81 (108.86 kg, 187.96 cm) as6 MDM: 06:50 Patient medically screened. 8 09:05 Data reviewed: vital signs, nurses notes, lab test result(s), radiologic studies, CT jr8 scan. Data interpreted: Pulse oximetry: on room air is 96 %. Interpretation: normal. Counseling: I had a detailed discussion with the patient and/or guardian regarding: the historical points, exam findings, and any diagnostic results supporting the discharge/admit diagnosis, lab results, radiology results, the need for outpatient follow up, a family practitioner, a credit risk review officer, to return to the emergency department if symptoms worsen or persist or if there are any questions or concerns that arise at home. 10/17 07:06 Order name: Basic Metabolic Panel jr8 10/17 07:06 Order name: CBC with Diff jr8 12/24 07:06 Order name: Hepatic Function 10/17 07:06 Order name: Lipase [facility] 10/17 07:07 Order name: Basic Metabolic Panel; Complete Time: 07:45 EDMS 10/17 07:07 Order name: Liver (Hepatic) Function; Complete Time: 07:45 EDMS 10/17 07:06 Order name: IV Saline Lock; Complete Time: 07:07 10/17 07:06 Order name: Labs collected and sent; Complete Time: 07:07 8 10/17 07:06 Order name: Urine Dipstick-Ancillary (obtain specimen); Complete Time: 09:19 10/17 07:07 Order name: CBC with Automated Diff; Complete Time: 07:32 EDMS 10/17 07:07 Order name: Lipase; Complete Time: 07:45 EDMS 10/17 07:32 Order name: Urine Dipstick-Ancillary; Complete Time: 07:39 EDMS 10/17 07:32 Order name: CT Abd/Pelvis - IV Contrast Only; Complete Time: 08:46 jr8 Administered Medications: No medications were administered Disposition Summary: 10/17/21 09:10 Discharge Ordered Location: Home jr8 Problem: new jr8 Symptoms: have improved jr8 Condition: Stable jr8 Diagnosis - Muscle spasm of back jr8 Followup: jr8 - With: Private Physician - When: 2 - 3 days - Reason: Recheck today's complaints, Continuance of care, Re-evaluation by your physician Discharge Instructions: - Discharge Summary Sheet jr8 - Acute Back Pain, Adult jr8 - Muscle Cramps and Spasms jr8 Forms: - Medication Reconciliation Form jr8 - Thank You Letter jr8 - Antibiotic Education jr8 - Prescription Opioid Use jr8 Prescriptions: - Skelaxin 800 mg Oral Tablet - take 1 tablet by ORAL route every 8 hours As needed; 30 tablet; Refills: 0, jr8 Product Selection Permitted Signatures: Dispatcher [employer] Micky Beck PA PA jr8 Wil Sotomayor MD MD ma2 Luc Jiménez, RN RN as6
--- NOTE | 2021-10-17 09:11 | ER ---
Nurse's Notes [facility] Name: Isaías Summers Age: 61 yrs Sex: Male : 1960 Arrival Date: 10/17/2021 Time: 06:18 Bed 8 Private MD: Diagnosis: Muscle spasm of back Presentation: 10/17 06:55 Chief complaint: Patient states: r sided back/flank pain x10 days. Coronavirus screen: as6 At this time, the client does not indicate any symptoms associated with coronavirus-19. Ebola Screen: No symptoms or risks identified at this time. Initial Sepsis Screen: Does the patient meet any 2 criteria? No. Patient's initial sepsis screen is negative. Does the patient have a suspected source of infection? No. Patient's initial sepsis screen is negative. Risk Assessment: Do you want to hurt yourself or someone else? Patient reports no desire to harm self or others. Onset of symptoms was October 07, 2021. 06:55 Method Of Arrival: Ambulatory as6 06:55 Acuity: BYRON 3 as6 Historical: - Allergies: 07:05 No Known Allergies; as6 - Home Meds: 07:05 amlodipine oral [Active]; as6 - PMHx: 07:05 Hypertension; Kidney stones; sleep apnea-c pap machine; as6 - PSHx: 07:05 Lithotripsy; as6 - Immunization history:: Adult Immunizations not up to date, Client reports receiving the 2nd dose of the Covid vaccine, Last tetanus immunization: unknown, Pneumococcal vaccine is not up to date, Flu vaccine is not up to date. - Social history:: Smoking status: Patient reports the use of cigarette tobacco products, smokes one pack cigarettes per day. Screenin:04 Abuse screen: Denies threats or abuse. Nutritional screening: No deficits noted. as6 Tuberculosis screening: No symptoms or risk factors identified. Fall Risk None identified. Assessment: 07:03 General: Appears in no apparent distress. Behavior is calm, cooperative. Pain: as6 Complains of pain in right flank Quality of pain is described as pressure. Neuro: Level of Consciousness is awake, alert, obeys commands, Oriented to person, place, time, situation. Cardiovascular: Capillary refill < 3 seconds Patient's skin is warm and dry. Respiratory: Airway is patent Trachea midline Respiratory effort is even, unlabored, Respiratory pattern is regular, symmetrical. Derm: Skin is intact, is healthy with good turgor. 07:05 GI: Reports constipation. as6 07:25 Reassessment: No changes from previously documented assessment. Patient and/or family ll1 updated on plan of care and expected duration. Pain level reassessed. Patient is alert, oriented x 3, equal unlabored respirations, skin warm/dry/pink. 08:20 Reassessment: No changes from previously documented assessment. Patient and/or family ll1 updated on plan of care and expected duration. Pain level reassessed. Patient is alert, oriented x 3, equal unlabored respirations, skin warm/dry/pink. 09:19 Reassessment: No changes from previously documented assessment. Patient and/or family ll1 updated on plan of care and expected duration. Pain level reassessed. Patient is alert, oriented x 3, equal unlabored respirations, skin warm/dry/pink. Vital Signs: 06:55 BP 135 / 87; Pulse 62; Resp 18 S; Temp 97.5(O); Pulse Ox 96% on R/A; Weight 108.86 kg as6 (R); Height 6 ft. 2 in. (187.96 cm) (R); Pain 5/10; 09:19 BP 124 / 83; Pulse 60; Resp 17; Pulse Ox 100% ; ll1 06:55 Body Mass Index 30.81 (108.86 kg, 187.96 cm) as6 ED Course: 06:18 Patient arrived in ED. ja2 06:49 Micky Corrigan PA is PHCP. jr8 06:50 Colt España MD is Attending Physician. jr8 06:55 Luc Jiménez, HUMPHREY is Primary Nurse. as6 07:01 Arm band placed on Patient placed in an exam room, on a stretcher. tw5 07:02 Triage completed. as6 07:04 Placed in gown. Bed in low position. Call light in reach. Side rails up X2. Pulse ox as6 on. NIBP on. 07:20 Inserted saline lock: 20 gauge in right antecubital area, using aseptic technique. ll1 Blood collected. 08:20 Primary Nurse role handed off by Luc Jiménez, HUMPHREY eb 08:24 Abigail Lemos RN is Primary Nurse. ll1 08:28 CT Abd/Pelvis - IV Contrast Only In Process Unspecified. EDMS 09:18 No provider procedures requiring assistance completed. IV discontinued, intact, ll1 bleeding controlled, No redness/swelling at site. Pressure dressing applied. Administered Medications: No medications were administered Outcome: 09:10 Discharge ordered by . altagracia 09:18 Discharged to home ambulatory. ll1 09:18 Condition: stable 09:18 Discharge instructions given to patient, Instructed on discharge instructions, follow up and referral plans. medication usage, Demonstrated understanding of instructions, follow-up care, medications, Prescriptions given X 1. 09:19 Patient left the ED. ll1 Signatures: Dispatcher [employer] EDMS Micky Corrigan PA PA jr8 Afshan Rizo Lynsay, RN RN ll1 Roya Pete Tiffany tw5 Luc Jiménez, RN RN as6 Corrections: (The following items were deleted from the chart) 07:05 07:03 Cardiovascular: Capillary refill < 3 seconds Patient's skin is warm and dry. as6 as6
[2021-10-17 09:27] VITALS: TEMP 97.5
[2021-10-17 09:29] VITALS: BP 124/83; O2SAT 100
== END 2021-10-17 09:19 | disposition home or self-care (01) ==
LOC: ER 06:13
DX: M62.830 Muscle spasm of back (principal); I10 Essential (primary) hypertension; F17.210 Nicotine dependence, cigarettes, uncomplicated; Z87.442 Personal history of urinary calculi
CPT/HCPCS: 85025; 80048; 36415; 80076; 81003; 83690; 74177; 99284; Q9967